=== PATIENT | female | born 1995 | race Caucasian/White ===

== ENCOUNTER → 2017-08-19 17:52 | Outpatient (CLI) | payer MEDICAID ==
[2015-10-13 11:40] VITALS: BMI 35.5
[~2017-08-19 17:52] MED LIST: AMBIEN5 MG PO; IBUPROFEN600 MG PO; PERCOCET 7.5/321 TAB PO
[2017-08-19 18:34] LABS: APPEARANCE CLOUDY (CLEAR); BILIRUBIN 2+ (NEGATIVE); COLOR DK YELLOW (YELLOW); GLUCOSE NEGATIVE (NEGATIVE); KETONE NEGATIVE (NEGATIVE); NITRITE NEGATIVE (NEGATIVE); PROTEIN TRACE mg/dL (NEGATIVE); SPECIFIC GRAVITY 1.015 (1.005-1.020)
[2017-08-19 18:42] LABS: BACTERIA MANY /hpf (NONE SEEN)
[2017-08-19 19:49] LABS: APPEARANCE HAZY (CLEAR); BILIRUBIN 2+ (NEGATIVE); COLOR DK YELLOW (YELLOW); GLUCOSE NEGATIVE (NEGATIVE); KETONE NEGATIVE (NEGATIVE); NITRITE NEGATIVE (NEGATIVE); PROTEIN TRACE mg/dL (NEGATIVE); SPECIFIC GRAVITY 1.015 (1.005-1.020)
[2017-08-19 19:53] LABS: BACTERIA MODERATE /hpf (NONE SEEN); MUCUS <1+ /lpf (NONE SEEN)
== END | disposition home or self-care (01) ==
LOC: D.LDO 17:52
PROVIDERS: Obstetrics & Gynecology
DX: O26.893 Other specified pregnancy related conditions, third trimester (principal); Z3A.34 34 weeks gestation of pregnancy; R10.30 Lower abdominal pain, unspecified; R10.2 Pelvic and perineal pain

== ENCOUNTER 2017-09-18 22:40 | Inpatient (IN) | payer MEDICAID ==
[~2017-09-18] VITALS: Ht 160 cm; Wt 83.9 kg
--- NOTE | ~2017-09-18 | OP ---
PATIENT NAME: NATACHA BOSS MEDICAL RECORD: [id number] :95 LOCATION:[id number] ADMISSION DATE:09/19/17 SURGEON: CHRISTIANO LOPEZ MD DATE OF OPERATION: 09/19/2017 PREOPERATIVE DIAGNOSES: 1. at 39 weeks gestational age. 2. History of prior section. POSTOPERATIVE DIAGNOSES: 1. at 39 weeks gestational age. 2. History of prior section. PROCEDURE: Repeat low transverse section. SURGEON: Christiano Lopez MD. ANESTHETIC: Spinal. ANESTHESIOLOGIST: Dr. Hyatt. FINDINGS: Viable male infant, vertex presentation, Apgars 9 and 9, weight 8 pounds 12 ounces. Unremarkable uterus, tubes and ovaries bilaterally. SPECIMEN REMOVED: Placenta. SPECIMEN DISPOSITION: Discarded. ESTIMATED BLOOD LOSS: 600 cc. FLUIDS: 1400 cc lactated Ringer's. URINE OUTPUT: 300 cc of clear urine. COMPLICATIONS: None. DRAIN: Mccoy to gravity. INDICATIONS: The patient is a 21-year-old G2, para 1 at term with history of prior section. Risks and benefits have been described. The patient acknowledged all risks and wishes to proceed. DESCRIPTION OF PROCEDURE: After informed consent was assured, the patient was taken to the operating room where anesthetic was obtained. After prepping and draping, the anesthetic was assessed and found to be adequate. An incision was made over the old scar. The abdomen was entered using a Pfannenstiel technique and DeLee all-purpose retractor inserted after development of a bladder flap. Low transverse hysterotomy was developed and the infant was delivered onto the abdomen atraumatically. The cord was doubly clamped and cut and the was passed to the attendant. Cord blood sample was obtained and the placenta was delivered via Crede maneuver. Uterus was now exteriorized and cleared of all clot and debris. The uterus was closed in a running locked fashion with chromic stitch. The uterus was now returned to the abdomen and the rectus abdominis reapproximated with a loose chromic stitch in the midline. Fascia was closed with looped PDS in a running fashion. Subcutaneous tissues were irrigated, OPERATIVE REPORT [id number] NATACHA BOSS bleeding vessels cauterized, and the skin reapproximated with a subcuticular stitch. Dermabond was applied. Sponge, lap, and needle counts correct times 3. The patient was sent to the recovery area in stable condition. TRANSINT:[id number] Voice Confirmation ID: [id number] DOCUMENT ID: [id number] CHRISTIANO LOPEZ MD at 0753 CC: [id number] DICTATION DATE: 09/19/17 1128 PARACHUTE REPAIRER: 09/19/17 1314 ADM IN [place] [id number] [place] [address]
[2017-09-19] VITALS (9 sets, daily range): BP systolic 109–149; BP diastolic 67–100; Ht 160 cm; Wt 83.9 kg
[2017-09-19 01:06] LABS: UDS - AMPHET NEGATIVE QUAL (NEGATIVE); UDS - BARB NEGATIVE QUAL (NEGATIVE); UDS - BENZO NEGATIVE QUAL (NEGATIVE); UDS - COCAINE NEGATIVE QUAL (NEGATIVE); UDS - OPIATE NEGATIVE QUAL (NEGATIVE); UDS - PCP NEGATIVE QUAL (NEGATIVE); UDS - THC NEGATIVE QUAL (NEGATIVE)
[2017-09-19 01:12] LABS: APPEARANCE CLOUDY (CLEAR); BILIRUBIN NEGATIVE (NEGATIVE); COLOR YELLOW (YELLOW); GLUCOSE NEGATIVE (NEGATIVE); KETONE NEGATIVE (NEGATIVE); NITRITE NEGATIVE (NEGATIVE); PROTEIN NEGATIVE (NEGATIVE); UROBILINOGEN NORMAL (NORMAL)
[2017-09-19 01:20] LABS: BACTERIA MODERATE /hpf (NONE SEEN); RED CELLS - URINE 0-5 /hpf (0-5); WHITE CELLS - URINE 0-5 /hpf (0-5)
[2017-09-19] MEDS ORDERED: AMBIEN5 MG PO (05:22)
[2017-09-19 05:53] LABS: HEMATOCRIT 29.8 % (36.0-48.0); HEMOGLOBIN 9.6 g/dL (12-16); MCH 27.9 pg (26.0-34.0); MCHC 32.2 g/dL (31.0-37.0); MCV 86.6 fL (80.0-100.0); MEAN PLATELET VOLUME 10.3 fL (7.4-10.4); RBC 3.44 10x6/uL (4.00-5.40); RDW 13.4 % (11.5-14.5); WBC 9.5 10x3/uL (4.8-10.8)
[2017-09-20 05:53] LABS: HEMOGLOBIN 8.8 g/dL (12-16); MCH 28.1 pg (26.0-34.0); MCHC 32.6 g/dL (31.0-37.0); MCV 86.3 fL (80.0-100.0); MEAN PLATELET VOLUME 9.8 fL (7.4-10.4); RBC 3.13 10x6/uL (4.00-5.40); RDW 13.4 % (11.5-14.5); WBC 10.4 10x3/uL (4.8-10.8)
[2017-09-20 06:15] LABS: RAPID PLASMA REAGIN Non Reactive (Non Reactive)
[2017-09-20 09:17] VITALS: BP 101/59
[2017-09-20 15:19] VITALS: BP 111/59
[2017-09-20 20:15] VITALS: BP 115/66
[2017-09-21 09:00] VITALS: BP 99/64
[2017-09-21] MEDS ORDERED: IBUPROFEN600 MG PO (16:36)
[2017-09-21] MEDS ORDERED: PERCOCET 7.5/321 TAB PO (16:36)
== END 2017-09-21 20:05 | disposition home or self-care (01) | DRG 766 ==
LOC: D.LDO 22:40 → D.LD 09-19 00:02
PROVIDERS: Obstetrics & Gynecology
PROC: 10D00Z1 Extraction of Products of Conception, Low, Open Approach (ICD-10-PCS; principal; 2017-09-19)
DX: O34.211 Maternal care for low transverse scar from previous cesarean delivery (principal); Z3A.39 39 weeks gestation of pregnancy; Z37.0 Single live birth

== ENCOUNTER 2018-10-05 10:36 | Emergency (ER) | payer MEDICAID ==
[~2018-10-05] VITALS: Ht 160 cm; Wt 77.3 kg
[2018-10-05 10:53] VITALS: Ht 160 cm; Wt 77.3 kg
[2018-10-05 11:15] LABS: APPEARANCE TURBID (CLEAR); COLOR YELLOW (YELLOW)
[2018-10-05 11:16] LABS: BILIRUBIN NEGATIVE (NEGATIVE); GLUCOSE NEGATIVE (NEGATIVE); KETONE NEGATIVE (NEGATIVE); NITRITE POSITIVE (NEGATIVE); PROTEIN TRACE mg/dL (NEGATIVE)
[2018-10-05 11:18] LABS: BACTERIA MANY /hpf (NONE SEEN); EPITHELIAL CELLS 0-5 /hpf (0-5); MUCUS <1+ /lpf (NONE SEEN); RED CELLS - URINE 25-50 /hpf (0-5)
[2018-10-05] MEDS ORDERED: MACROBID100 MG PO (12:26)
[2018-10-05] MEDS ORDERED: HYDROCODON-ACE1 EAC2 PO (12:27)
[2018-10-05 12:47] VITALS: BP 132/80
== END 2018-10-05 12:48 | disposition home or self-care (01) ==
LOC: D.ER 10:36
PROVIDERS: Emergency Medicine
DX: O26.899 Other specified pregnancy related conditions, unspecified trimester (principal); Z3A.00 Weeks of gestation of pregnancy not specified; R10.2 Pelvic and perineal pain; O23.40 Unspecified infection of urinary tract in pregnancy, unspecified trimester

== ENCOUNTER → 2019-02-02 14:45 | Outpatient (CLI) | payer MEDICAID ==
[2018-10-05 10:53] VITALS: BMI 30.1
[~2019-02-02 14:45] MED LIST changes: +CELEXA20 MG; +HYDROCODON-ACE1 EAC2 PO; +MACROBID100 MG PO; +SULFAMETHOXAZOL1 TA2
[2019-02-02 15:18] LABS: APPEARANCE CLOUDY (CLEAR); BILIRUBIN NEGATIVE (NEGATIVE); COLOR DK YELLOW (YELLOW); GLUCOSE NEGATIVE (NEGATIVE); KETONE NEGATIVE (NEGATIVE); NITRITE NEGATIVE (NEGATIVE); PROTEIN TRACE mg/dL (NEGATIVE); UROBILINOGEN NORMAL (NORMAL)
[2019-02-02 15:20] LABS: BACTERIA MODERATE /hpf (NEGATIVE); MUCUS <1+ /lpf (NONE SEEN); UDS - AMPHET NEGATIVE QUAL (NEGATIVE); UDS - BARB NEGATIVE QUAL (NEGATIVE); UDS - BENZO NEGATIVE QUAL (NEGATIVE); UDS - COCAINE NEGATIVE QUAL (NEGATIVE); UDS - OPIATE NEGATIVE QUAL (NEGATIVE); UDS - PCP NEGATIVE QUAL (NEGATIVE); UDS - THC POSITIVE QUAL (NEGATIVE); WHITE CELLS - URINE 0-5 /hpf (NEGATIVE)
== END | disposition home or self-care (01) ==
LOC: D.LDO 14:45
PROVIDERS: ATTEND Obstetrics & Gynecology
DX: O47.9 False labor, unspecified (principal); Z3A.00 Weeks of gestation of pregnancy not specified

== ENCOUNTER → 2019-02-05 16:53 | Outpatient (CLI) | payer MEDICAID ==
[2018-10-05 10:53] VITALS: BMI 30.1
--- NOTE | 2019-02-05 17:08 | NUR ---
PT WAS A LOW RISK PER ASSESSMENT. PT ADMITS TO CUTTING AT THE AGE OF 16 BUT DID GET ON MEDICINE TO HELP WITH IT. PT DENIES SI. PT HAPPY BECAUSE BABY WILL BE DELIVERED TOMORROW. RESOURCES GIVEN AND EXPLAINED TO PT. PT VERBALIZED UNDERSTANDING.
[2019-02-05 18:02] LABS: BASOPHILS 0.2 % (0-2); EOSINOPHILS 0.3 % (0-7); HEMATOCRIT 30.3 % (36.0-48.0); HEMOGLOBIN 9.6 g/dL (12-16); IMMATURE GRANULOCYTES 0.3 % (0-5); LYMPHOCYTES 18.3 % (15-50); MCH 27.8 pg (26.0-34.0); MCHC 31.7 g/dL (31.0-37.0); MCV 87.8 fL (80.0-100.0); MEAN PLATELET VOLUME 10.2 fL (7.4-10.4); MONOCYTES 7.2 % (2-11); NEUTROPHILS 73.7 % (40-80); RBC 3.45 10x6/uL (4.00-5.40); RDW 13.2 % (11.5-14.5); WBC 10.3 10x3/uL (4.8-10.8)
[2019-02-05 18:17] LABS: CALC OSMOLALITY 272 mosm/kg (275-300); CALCIUM 8.5 mg/dL (8.5-10.1); CARBON DIOXIDE 24.6 mmol/L (21.0-32.0); CHLORIDE - SERUM 107 mmol/L (98-107); CREATININE - SERUM 0.6 mg/dL (0.6-1.3); GLUCOSE 83 mg/dL (74-106); POTASSIUM - SERUM 3.8 mmol/L (3.5-5.1); SODIUM 138 mmol/L (136-145); UREA NITROGEN 7 mg/dL (7-18); eGFR NON AFRICAN AMERICAN > 90 mL/min (90-120)
[2019-02-05 18:22] LABS: ALBUMIN 2.5 g/dL (3.4-5.0); ALKALINE PHOSPHATASE 177 U/L (46-116); ALT (SGPT) 10 U/L (10-68); BILIRUBIN - DIRECT 0.06 mg/dL (0.00-0.30); BILIRUBIN - INDIRECT 0.35 mg/dL (0.00-1.00); BILIRUBIN - TOTAL 0.41 mg/dL (0.2-1.3); PLATELET COUNT 296 10x3/uL (130-400); PROTEIN - SERUM 6.6 g/dL (6.4-8.2)
[2019-02-05 18:23] LABS: APPEARANCE CLEAR (CLEAR); BILIRUBIN NEGATIVE (NEGATIVE); COLOR YELLOW (YELLOW); GLUCOSE NEGATIVE (NEGATIVE); KETONE NEGATIVE (NEGATIVE); NITRITE NEGATIVE (NEGATIVE); PROTEIN NEGATIVE (NEGATIVE); UROBILINOGEN NORMAL (NORMAL)
[2019-02-07 07:15] LABS: RAPID PLASMA REAGIN Non Reactive (Non Reactive)
== END | disposition home or self-care (01) ==
LOC: D.LDO 16:53
PROVIDERS: ATTEND Obstetrics & Gynecology
DX: O26.893 Other specified pregnancy related conditions, third trimester (principal); Z3A.38 38 weeks gestation of pregnancy; R03.0 Elevated blood-pressure reading, without diagnosis of hypertension

== ENCOUNTER 2019-02-06 04:46 | Inpatient (IN) | payer MEDICAID ==
[~2019-02-06] VITALS: Ht 160 cm; Wt 83.9 kg
[~2019-02-06 04:46] MED LIST changes: -CELEXA20 MG; -SULFAMETHOXAZOL1 TA2
[2019-02-06] MEDS ORDERED: CELEXA20 MG (05:04)
[2019-02-06] MEDS ORDERED: SULFAMETHOXAZOL1 TA2 (05:04)
[2019-02-06 05:05] VITALS: BP 116/72; Ht 160 cm; Wt 83.9 kg
--- NOTE | 2019-02-06 05:42 | NUR ---
DR PABON NOTIFIED AND REVIEWED PT'S BEHAVIOR AND ASSESSMENT RESULTS. PT IS A LOW RISK PER DR PABON. DR PABON STATED TO GIVE RESOURCES TO PT AT TIME OF DISCHARGE. NO FURTHER ORDERS AT THIS TIME. RESOURCES REVIEWED WITH PT AND SHE VERBALIZED UNDERSTANDING.
--- NOTE | 2019-02-06 07:37 | NUR ---
BABY GIRL BORN AT 0732
[2019-02-06 08:54] VITALS: BP 128/76
--- NOTE | 2019-02-06 08:54 | NUR ---
PT RCVD VIA BED TO ROOM 1273 FROM RECOVERY. PT RATING PAIN 5/10. VSS, SEE FLOWSHEET FOR DOC. IV INFUSING ORDERED. FF, ML, U/1. MOD RUBRA LOCHIA, NO CLOTS. LOW TRANSVERSE ABD INCISION IS C/D WITH DERMABOND INTACT. NO DRAINAGE NOTED. WHELAN CATH DRAINING DARK YELLOW URINE TO BEDSIDE DRAINAGE, TUBING SECURED VIA STAT LOCK TO INNER RIGHT THIGH. SCD'S ON LE BILAT. MILD GENERALIZED EDEMA NOTED TO LE BILAT, NON-PITTING. PT DENIES NAUSEA, ICE WATER GIVEN. INCENTIVE SPIROMETER INSTRUCTIONS GIVEN, PT COUGHING AND DEEP BREATHING ON OWN. ICE PACK TO ABD INCISION ORDERED. POC DISCUSSED. WILL REVIEW PT'S PAIN MED ORDERS. SRUx2, CL IN REACH. SIG OTHER AT BEDSIDE.
--- NOTE | 2019-02-06 09:00 | NUR ---
SEE PAPER CHART FOR ALL VITALS FOR THIS SHIFT.
--- NOTE | 2019-02-06 09:05 | NUR ---
NEW BAG PITOCIN HUNG, INFUSING ORDERED. SEE EMAR.
--- NOTE | 2019-02-06 09:32 | NUR ---
FF, ML, U/1. SMALL RUBRA LOCHIA. NO CLOTS.
--- NOTE | 2019-02-06 09:40 | NUR ---
PT ADMIN PRN TORADOL ORDERED FOR PAIN RATED 7/10, SEE EMAR FOR DOC.
--- NOTE | 2019-02-06 09:49 | NUR ---
PT ADMIN 2MG DILAUDID ORDERED FOR PAIN 10/23, SEE EMAR.
--- NOTE | 2019-02-06 09:50 | NUR ---
PT C/O ITHCING ON NOSE AND FACE FROM DILAUDID, REQUESTING BENADRYL. ADMIN ORDERED, SEE EMAR. 45ML DARK YELLOW URINE EMPTIED FROM UROMETER. FF, ML, SMALL RUBRA LOCHIA, NO CLOTS. PERIPAD CHANGED. PT PROVIDED WITH ICE WATER AND ENCOURAGED TO DRINK. DENIES NEEDS. SIG OTHER AT BEDSIDE.
--- NOTE | 2019-02-06 10:55 | NUR ---
PT C/O COUGHING, STATES DR LOPEZ TOLD HER HE WOULD ORDER COUGH MED. DR LOPEZ ON UNIT AND INFORMED, ORDER RCVD. ROBITUSSIN ADMIN ORDERED, SEE EMAR FOR DOC.
--- NOTE | 2019-02-06 11:00 | NUR ---
FF, ML, U/1. SMALL RUBRA LOCHIA, NO CLOTS. PERIPAD CHANGED.
--- NOTE | 2019-02-06 12:02 | NUR ---
FF, ML, U/1. SMALL RUBRA LOCHIA, NO CLOTS. PERIPAD CHANGED.
--- NOTE | 2019-02-06 13:07 | NUR ---
FF, ML, U/2. SMALL RUBRA LOCHIA, NO CLOTS.
--- NOTE | 2019-02-06 13:15 | NUR ---
DR LOPEZ PHONED AND NOTIFIED OF PT'S REQUEST TO GET OOB TO AMBULATE TO [facility] TO SEE INFANT. ORDERS RCVD ON NORMALIZING PT AT 6 HOURS IF ADEQUATE URINE OUTPUT, SEE NURSING MESSAGE IN ORDERS. ORDER TO BOLUS PT PER STATED PARAMETERS FOR REPORTED URINE OUTPUT. WILL PROCEED ORDERED.
--- NOTE | 2019-02-06 13:20 | NUR ---
LR BOLUS INITIATED ORDERED FOR DECREASED URINE OUTPUT. SEE EMAR FOR DOC.
--- NOTE | 2019-02-06 13:30 | NUR ---
200ML CLEAR YELLOW URINE EMPTIED FROM UROMETER.
--- NOTE | 2019-02-06 13:49 | NUR ---
PT ADMIN PRN PERCOCET ORDERED FOR PAIN RATED 7/10, SEE EMAR FOR DOC.
--- NOTE | 2019-02-06 14:20 | NUR ---
200ML CLEAR YELLOW URINE EMPTIED FROM WHELAN CATH UROMETER. WILL D/C WHELAN.
--- NOTE | 2019-02-06 14:21 | NUR ---
LR BOLUS COMPLETE, IV SALINE LOCKED. WHELAN CATH D/C'D. PT PLACED IN CLEAN PANTIES AND PADS, BED PADS CHANGED. PT UP OOB AMBULATORY IN ROOM, BRACING INCISION WITH SMALL SURGICAL PILLOW. PT DENIES FEELING DIZZY OR LIGHTHEADED. PT REFUSES NEEDING W/C TO NURSERY AT THIS TIME, WANTS TO AMBULATE. PT AMBULATES TO NURSERY WITHOUT ASSIST, ACCOMPANIED BY THIS RN AND SIG OTHER. PT TO 'S CRIBSIDE IN NURSERY. CHAIR PROVIDED TO PT TO SIT NEXT TO IF DESIRED. SIG OTHER AT PT'S SIDE. INSTRUCTED TO NOTIFY NURSE IF FEELS DIZZY. UNDERSTANDING VERBALIZED. WILL CONT TO MONITOR.
--- NOTE | 2019-02-06 14:55 | NUR ---
PT BACK TO ROOM AMBULATORY WITHOUT ASSIST, ACCOMPANIED BY THIS RN AND SIG OTHER. PT TO BED PER SELF. PT REQUESTING SOMETHING TO EAT. BOWEL SOUNDS ASSESSED BY THIS RN AND NOTED TO BE ACTIVE x4Q. DIET ADVANCED ORDERED, PT PROVIDED WITH PUDDING AND ALYSA CRACKERS. SRUx2, CL IN REACH. PT INSTRUCTED TO CALL FOR ANY NEEDS. UNDERSTANDING VERBALIZED.
--- NOTE | 2019-02-06 16:56 | NUR ---
THIS RN TO ROOM FOR PT CHECK. PT TALKING WITH MEDICAID REP. PT STATES SHE GOT UP TO VOID, AND IS NOW HURTING WORSE FROM WALKING TO BR. PT RATING PAIN 8/10, REQUESTING PAIN MED. TORADOL ADMIN IV ORDERED, SEE EMAR FOR DOC. PT SITTING UP IN BED EATING DINNER WHILE TALKING WITH REP, DENIES NAUSEA. NEW ICE WATER GIVEN. PT UPDATED ON INFANT. VOLUME VOID MEASURED APPROX 600ML URINE MIXED WITH RUBRA LOCHIA AND 1 NICKEL SIZED CLOT. PT STATES THERE WAS VERY LITTLE BLEEDING ON HER PAD. SRUx2, CL IN REACH. WILL REEVALUATE PAIN.
--- NOTE | 2019-02-06 17:22 | NUR ---
PT ADMIN PRN ROBITUSSIN ORDERED, SEE EMAR FOR DOC. PT DENIES FURTHER NEEDS AT THIS TIME.
--- NOTE | 2019-02-06 18:11 | NUR ---
PT ADMIN PRN PERCOCET FOR PAIN RATED 6/10, SEE EMAR FOR DOC. NEW ICE PACK TO ABD PER PT REQUEST. PT DENIES FURTHER NEEDS. SRUx2, CL IN REACH.
--- NOTE | 2019-02-06 18:57 | NUR ---
BEDSIDE SHIFT REPORT COMPLETED WITH MADELIN BEE TO ASSUME PT CARE
--- NOTE | 2019-02-06 19:20 | NUR ---
IN TO PERFORM SHIFT ASSESSMENT AT THIS TIME, PT UP TO BATHROOM. WILL COME BACK.
--- NOTE | 2019-02-06 19:30 | NUR ---
PT VOIDED 35OML CLEAR YELLOW URINE WITHOUT INCIDENT.
[2019-02-06 20:10] VITALS: BP 117/79
--- NOTE | 2019-02-06 20:10 | NUR ---
SHIFT ASSESSMENT COMPLETED, SEE FLOWSHEET. IN MOTHERS ARMS, BED LOCKED, IN LOW POSITION, SIDE RAILS UPX2, CALL LEOS AND TRAY TABLE IN REACH. PT DENIES NEEDS. WILL CONTINUE TO MONITOR.
--- NOTE | 2019-02-06 21:06 | NUR ---
SANDWICH TRAY,CHIPS AND ICE WATER PROVIDED PER PT REQUEST. NO FURTHER NEEDS IDENTIFIED. REMAINS IN MOTHERS ARMS. BED LOCKED IN LOW POSITION, SIDE RAILS UPX2, CALL LEOS AND TRAY TABLE IN REACH. WILL CONTINUE TO MONITOR
--- NOTE | 2019-02-06 22:00 | NUR ---
CLEAN BABY SHIRT PROVIDED PER PT REQUEST. NO FURTHER NEEDS IDENTIFIED. WILL CONTINUE TO MONITOR
--- NOTE | 2019-02-06 22:41 | NUR ---
ADMINISTERED TORADOL AND PERCOCET PER MD ORDERS, SEE EMAR
--- NOTE | 2019-02-06 23:49 | NUR ---
PT SITTING UP IN BED HOLDING , DENIES NEEDS AT THIS TIME. PT ENCOURAGED TO CALL WITH ANY NEEDS. WILL CONTINUE TO MONITOR.
[2019-02-07 01:50] VITALS: BP 118/69
--- NOTE | 2019-02-07 03:54 | NUR ---
ROBITUSSIN ADMINISTERED PER PT REQUEST. SEE EMAR. PT SITTING UP IN BED, CHANGING INFANTS DIAPER. NO FURTHER NEEDS IDENTIFIED. WILL CONTINUE TO MONITOR.
--- NOTE | 2019-02-07 04:38 | NUR ---
TORADOL AND PERCOCET ADMINISTERED, SEE EMAR.
[2019-02-07 04:56] LABS: BASOPHILS 0.1 % (0-2); EOSINOPHILS 1.2 % (0-7); HEMATOCRIT 25.3 % (36.0-48.0); HEMOGLOBIN 8.3 g/dL (12-16); IMMATURE GRANULOCYTES 0.3 % (0-5); LYMPHOCYTES 24.6 % (15-50); MCH 28.7 pg (26.0-34.0); MCHC 32.8 g/dL (31.0-37.0); MCV 87.5 fL (80.0-100.0); MEAN PLATELET VOLUME 10.1 fL (7.4-10.4); MONOCYTES 6.9 % (2-11); NEUTROPHILS 66.9 % (40-80); PLATELET COUNT 252 10x3/uL (130-400); RBC 2.89 10x6/uL (4.00-5.40); RDW 13.5 % (11.5-14.5); WBC 9.5 10x3/uL (4.8-10.8)
--- NOTE | 2019-02-07 05:15 | NUR ---
SANDWICH TRAY AND PUDDING PROVIDED PER PT REQUEST.
--- NOTE | 2019-02-07 05:25 | NUR ---
DR LOPEZ CALLED AND AM CBC REPORTED, NEW ORDERS NOTED FOR IRON INFUSION.
[2019-02-07 08:00] VITALS: BP 107/72
--- NOTE | 2019-02-07 08:00 | NUR ---
ASSESSMENT DONE. PT SITTING UP IN BED. VERBAL RESPONSES APPRO TO QUESTIONS. STATES THAT SHE IS UP AND ABOUT IN ROOM NEEDED. STATES THAT SHE IS PASSING GAS. SCANT LOCHIA NOTED ON PAD. INCISION APPEARANCE -WNL.
--- NOTE | 2019-02-07 10:57 | NUR ---
baby in mothers arms. pain med given per request. rates pain a 7 on scale of 0-10. pt states that she held urine until iv infusion was complete. iron infusion complete- saline flush to iv site. up to bathroom to void.
--- NOTE | 2019-02-07 12:12 | NUR ---
SITTING UP IN BED- REQUESTS CRANBERRY JUICE.
--- NOTE | 2019-02-07 13:29 | NUR ---
dr pinon here to see pt.
--- NOTE | 2019-02-07 14:00 | NUR ---
sitting up in bed holding . states wants to shower when her gets here.
[2019-02-07 14:01] VITALS: BP 120/73
--- NOTE | 2019-02-07 14:50 | NUR ---
up to shower- linens changed. tolerated well.
--- NOTE | 2019-02-07 15:01 | NUR ---
rates pain up to 6 on scale of 0-10 after shower. pain med given.
--- NOTE | 2019-02-07 16:00 | NUR ---
ambulating in hallways- tolerated well.
--- NOTE | 2019-02-07 17:50 | NUR ---
pt states that she wants to take ibuprofen with pain med at next dose. denies needs at this time.
--- NOTE | 2019-02-07 19:08 | NUR ---
report to pm shift.
[2019-02-07 19:29] VITALS: BP 116/76
--- NOTE | 2019-02-07 19:29 | NUR ---
PT. AWAKE AND ORIENTED. LYING IN LT TILT. SKIN WARM AND DRY. LOCHIA RUBRA SCANT. ABD. INCISION WITHOUT REDNESS NOR EDEMA. DENIES ANY PAIN IN LOWER EXTREMITIES AND NO REDNESS OR EDEMA NOTED. SALINE LOCKS NOTED IN BOTH LT AND RT. WRIST AREAS. NO REDNESS NOR EDEMA AT IV SITES. REPORTS PASSING GAS. EATING PUDDING AT PRESENT. BREATH SOUNDS CLEAR AND BOWEL SOUNDS AUDIBLE. RATES PAIN A 0 OF 10 AT THIS TIME.
--- NOTE | 2019-02-07 19:34 | NUR ---
WALKING IN HALLWAY. GAIT STEADY.
--- NOTE | 2019-02-07 19:54 | NUR ---
REQUESTING PAIN MED. STATES THAT PANTIES HIT INCISION. RATES A 7 OF 10 ON PAIN SCALE. REQUESTING ICE CAP TO APPLY TO INCISIONAL AREA. SAME GIVEN.
--- NOTE | 2019-02-07 20:01 | NUR ---
PAIN MED GIVEN PER PT. REQUEST. FEEDING AT PRESENT. RATES PAIN A 7 OF 10 ON PAIN SCALE. STATES PANTIES HIT INCISION CAUSING DISCOMFORT.
--- NOTE | 2019-02-07 20:12 | NUR ---
ALL DOCUMENATION ON THIS CHART SINCE TODAY AT 1900 WAS DONE PER THIS NURSE.
--- NOTE | 2019-02-07 22:10 | NUR ---
INFANT EATING AT PRESENT. PT. REQUESTING POPSICLE.
--- NOTE | 2019-02-07 22:20 | NUR ---
BAILEY SERVED. PT. ASKING FOR SHIRT AND BLANKET FOR . STATES SHE SPIT UP ON SHIRT. SAME PROVIDED.
--- NOTE | 2019-02-07 22:31 | NUR ---
HOLDING AT PRESENT.
[2019-02-07 22:33] VITALS: BP 133/76
--- NOTE | 2019-02-07 22:40 | NUR ---
REQUESTED SANDWICH TRAY AND CRANBERRY JUICE. SAME GIVEN. HOLDING AT PRESENT.
--- NOTE | 2019-02-08 00:02 | NUR ---
SITTING UP ON EDGE OF BED. REQUESTS INFANT BE TAKEN TO NBN FOR HER TO REST. TAKEN PER PT REQUEST.
--- NOTE | 2019-02-08 00:15 | NUR ---
C/O ABD AND INCISIONAL DISCOMFORT, BURNING/ACHING/PRESSURE 8/10. STATES "I THINK I HAVE A GAS BUBBLE." ENCOURAGED TO AMBULATE. BOWEL SOUNDS REMAIN ACTIVE X4 QUADS, REPORTS THAT SHE IS PASSING FLATUS. REQUEST PERCOCET AND SIMETHICONE, PROVIDED PER REQUEST. Pelon GAN RN NOTIFIED OF PT COMPLAINTS AND INTERVENTIONS DONE.
--- NOTE | 2019-02-08 01:50 | NUR ---
LYING ON RT SIDE WITH EYES CLOSED AND RESPIRATIONS UNLABORED. TV CURRENTLY ON WITH VOLUME LOW.
--- NOTE | 2019-02-08 04:28 | NUR ---
LYING ON RT SIDE WITH EYES CLOSED. RESPIRATIONS UNLABORED.
--- NOTE | 2019-02-08 06:08 | NUR ---
LYING ON LT SIDE WITH EYES CLOSED. RESPIRATIONS UNLABORED.
[2019-02-08 07:52] VITALS: BP 126/84
--- NOTE | 2019-02-08 07:52 | NUR ---
PAIN REASSESSMENT, SHIFT ASSESSMENT COMPLETED, STATES PAIN MUCH BETTER NOW A 6/10 ON NUMERIC PAIN SCALE. S.L. TO BILATERAL WRISTS IN PLACE, NO SIGNS OF INFECTION NOTED. LUNGS CTAB, HEART RRR, ABD SOFT AND NON-DISTENDED, +FLATUS, + BOWEL SOUNDS TO 4 QUADS, FF AT U/2 AND MIDLINE, LTI CDI WITH DERMABOND ALSO WITH NO REDNESS, SWELLING, DRAINAGE, OR SEPARATION. LOCHIA RUBRA LIGHT TO MODERATE AMOUNT, DENIES CLOTS, PT PERFORMS PERICARE POST VOID ORDERED, AMBULATORY IN ROOM, SKY FREELY, NEGATIVE KAVEH'S SIGN B LE, PEDAL PULSES STRONG/=/+2 B. CONSUMED 100% BREAKFAST TRAY WITHOUT DIFFICULTY. DENIES NEEDS AT THIS TIME, TO PT ARMS, BONDING NOTED. WILL MONITOR.
--- NOTE | 2019-02-08 08:15 | NUR ---
PT USING CALL LIGHT TO REQUEST CUP OF ICE WATER AND PHONE SUPERVISOR ELEMENTARY EDUCATION OFF THE FLOOR; SAME PROVIDED, NO OTHER NEEDS VOICED AT THIS TIME, WILL MONITOR.
--- NOTE | 2019-02-08 09:30 | NUR ---
ROUNDS COMPLETED, RESP EVEN AND UNLABORED, IN ARMS, DENIES NEEDS OR CONCERNS WILL MONITOR.
--- NOTE | 2019-02-08 10:40 | NUR ---
ROUNDS COMPLETED, DENIES NEEDS OR CONCERNS WILL CONTINUE TO MONITOR.
--- NOTE | 2019-02-08 11:20 | NUR ---
REQUESTS SNACK, PROVIDED SHERBERT ICE CREAM PER REQUEST, NO OTHER NEEDS VOICED AT THIS TIME, RESP EVEN AND UNLABORED, NAD, AMBULATORY IN ROOM.
--- NOTE | 2019-02-08 12:10 | NUR ---
TELEPHONE ORDER RECEIVED FOR FLU VACCINE PRIOR TO DISCHARGE. VERIFIED BY TORB. WILL MONITOR.
--- NOTE | 2019-02-08 12:40 | NUR ---
ROUNDS COMPLETED, SALINE LOCK REMOVED FROM RIGHT AND LEFT WRIST, CATHETER TIPS INTACT, PRESSURE DRESSING APPLIED OVER BOTH SITES, TOLERATES PROCEDURES WELL. DENIES NEED FOR PAIN MEDS OR OTHER CONCERNS AT THIS TIME, LIGHTS DIMMED PER REQUEST, AND LUNCH TRAY REMOVED FROM PT ROOM. CALL LIGHT IN EASY REACH, WILL MONITOR FOR CHANGES IN STATUS.
--- NOTE | 2019-02-08 13:20 | NUR ---
DISCHARGE INSTRUCTIONS REVIEWED WITH PT, HANDOUTS PROVIDED FOR REVIEW ONCE AT HOME, QUESTIONS ANSWERED, STATES UNDERSTANDING OF ALL INFORMATION PROVIDED, RESP EVEN AND UNLABORED, CALL LIGHT IN EASY REACH, INFANT IN ARMS, NOTIFIED PT SPOUSE PER REQUEST OF DISCHARGE.
--- NOTE | 2019-02-08 14:44 | NUR ---
patient discharged to home via private auto per w/c, secured in rear-facing carseat, escorted per significant other. nad noted.
--- NOTE | 2019-02-09 12:19 | MORECARE ---
CASE MANAGEMENT DISCHARGE SUMMARY PATIENT: NATACHA BOSS UNIT: [id number] ADM DATE: 02/06/19 AGE: 23 : 95 SEX: F ROOM/BED: D.1273 AUTHOR: JACOB OBRIEN PHYSICIAN: REFERRING PHYSICIAN: CHRISTIANO LOPEZ MD DATE OF SERVICE: 02/09/19 Discharge Plan Patient Name: NATACHA BOSS Facility: [facility]:[place] : 1995 Planned Disposition: Anticipated Discharge Date: Discharge Date: 02/08/2019 Expected LOS: Initial Reviewer: [email or web address] Initial Review Date: 02/06/2019 Generated: 02/09/19 1:19 pm Patient Name: NATACHA BOSS Page [phone] at 1219 All edits/amendments must be made on the electronic document DICTATION DATE: 02/09/19 1219 MOTORCYLES FINAL INSPECTOR: CARY 02/09/19 1219 RPT#: [id number] DC DATE:02/08/19 STATUS: DIS IN [facility] [address] [place] [address] END OF REPORT
--- NOTE | 2019-03-14 07:19 | OP ---
PATIENT NAME: NATACHA BOSS MEDICAL RECORD: [id number] :95 LOCATION:[facility] ADMISSION DATE:02/06/19 SURGEON: JUAN F LOPEZ MD DATE OF OPERATION: 02/06/2019 PREOPERATIVE DIAGNOSES: 1. at 38 and 4/7. 2. History of prior section. 3. -induced hypertension. POSTOPERATIVE DIAGNOSES: 1. at 38 and 4/7. 2. History of prior section. 3. -induced hypertension. PROCEDURE: Repeat low transverse section. SURGEON: Juan F Lopez MD GEOGRAPHY TEACHER: Hammad Lange. ANESTHESIA: Spinal. FINDINGS: Viable female infant, vertex presentation, weight 7 pounds 7 ounces. Apgars are 9 and 9. Unremarkable appearing uterus, ovaries, and tubes. SPECIMENS REMOVED: Placenta. SPECIMEN DISPOSITION: Discarded. ESTIMATED BLOOD LOSS: 700 cc. FLUIDS: 2000 cc of lactated Ringer's. URINE OUTPUT: 250 cc of clear urine. COMPLICATIONS: None. DRAIN: Mccoy to gravity. INDICATIONS: The patient is a 23-year-old multiparous female with a history of prior section. The patient is noted to have mild range pressures without severe symptoms. The patient has consented for delivery at 38 and 4 weeks. DESCRIPTION OF PROCEDURE: After informed consent was assured, the patient was taken to the operating room where anesthetic is obtained. The patient is now prepped and draped, and after assessment of the anesthetic, an incision was made over the old scar. This incision was carried down to the underlying layer of the fascia, which was opened in the midline and extended laterally. The rectus bellies were now and the peritoneum entered. A DeLee all-purpose retractor was now inserted and bladder flap developed. A low transverse hysterotomy was performed and the was delivered onto the abdomen atraumatically. The cord was doubly clamped and cut and the infant passed to the attendant. The placenta is now delivered via Crede maneuver. The uterus OPERATIVE REPORT [id number] NATACHA BSOS exteriorized and cleared of all clot and debris. The hysterotomy was now closed with a running locked stitch of chromic. After this had been performed, the uterus was returned to the abdomen and the pelvis irrigated. Irrigant was removed and adequate hemostasis was noted. The peritoneum is now reapproximated along with the rectus bellies. The fascia was closed with a running looped PDS. Subcutaneous tissues were irrigated, bleeding vessels cauterized, and the skin was now reapproximated. Sterile dressing is applied. Sponge, lap, and needle count was correct times 2. TRANSINT:[id number] Voice Confirmation ID: [id number] DOCUMENT ID: [id number] JUAN F LOPEZ MD at 0719 CC: [id number] DICTATION DATE: 03/12/19 155 GLUE JOINTER OPERATOR: 03/12/191950 DIS IN 02/08/19 [facility] [address] [place] [address]
== END 2019-02-08 14:30 | disposition home or self-care (01) | DRG 788 ==
LOC: D.LD 04:46
PROVIDERS: ADMIT Obstetrics & Gynecology; ATTEND Obstetrics & Gynecology
PROC: 10D00Z1 Extraction of Products of Conception, Low, Open Approach (ICD-10-PCS; principal; 2019-02-06 07:00)
DX: O13.4 Gestational [pregnancy-induced] hypertension without significant proteinuria, complicating childbirth (principal); Z3A.38 38 weeks gestation of pregnancy; Z37.0 Single live birth; O34.219 Maternal care for unspecified type scar from previous cesarean delivery; O99.334 Smoking (tobacco) complicating childbirth; F17.200 Nicotine dependence, unspecified, uncomplicated